=== PATIENT | female | born 1980 | race Caucasian/White ===

== ENCOUNTER 2017-05-05 11:30 | Emergency (ER) | payer SELFPAY ==
[2017-05-05] MEDS ORDERED: Acetaminophen 500 MG TAB ONE (11:49)
[2017-05-05] MEDS ORDERED: AMOXicillin 250 MG CAP ONE (11:49)
== END 2017-05-05 12:08 | disposition home or self-care (01) ==
LOC: MADERS 11:30
DX: K02.9 Dental caries, unspecified (principal); F32.9 Major depressive disorder, single episode, unspecified; F41.9 Anxiety disorder, unspecified; F17.210 Nicotine dependence, cigarettes, uncomplicated
CPT/HCPCS: 99282

== ENCOUNTER 2017-06-15 11:39 | Emergency (ER) | payer OTHER, SELFPAY | END 2017-06-15 11:55 | disposition home or self-care (01) | LOC: MADERS 11:39 | DX: K03.81 Cracked tooth (principal); K02.9 Dental caries, unspecified; F41.9 Anxiety disorder, unspecified; F32.9 Major depressive disorder, single episode, unspecified; F17.210 Nicotine dependence, cigarettes, uncomplicated | CPT/HCPCS: 99282 ==

== ENCOUNTER 2018-07-07 21:37 | Emergency (ER) | payer SELFPAY ==
[2018-07-07 22:33] LABS: Anion Gap 14 mmol/L (10-20); BUN (Urea Nitrogen) 5 mg/dL (7.0-18.7); Calc. Creatinine Clearance 0 mL/min (70-130); Calcium 8.2 mg/dL (7.8-10.44); Carbon Dioxide 25 mmol/L (22-29); Chloride 105 mmol/L (98-107); Estimated GFR-MDRD 89; Glucose 83 mg/dL (70-105); Sodium 141 mmol/L (136-145)
[2018-07-07 22:41] LABS: Potassium 2.7 mmol/L (3.5-5.1)
[2018-07-07] MEDS ORDERED: Potassium Chloride 20 MEQ TAB ONE (22:41)
== END 2018-07-07 23:00 | disposition home or self-care (01) ==
LOC: MADERS 21:37
DX: E87.6 Hypokalemia (principal); I45.81 Long QT syndrome; I10 Essential (primary) hypertension; F41.9 Anxiety disorder, unspecified; F32.9 Major depressive disorder, single episode, unspecified; F17.210 Nicotine dependence, cigarettes, uncomplicated; Z79.899 Other long term (current) drug therapy
CPT/HCPCS: 36415; 80048; 82040; 83735; 93005